=== PATIENT | female | born 1970 | race Caucasian/White ===

== ENCOUNTER 2017-08-02 07:27 | Emergency (ER) | payer MEDICAID ==
[~2017-08-02] VITALS: Ht 167.6 cm; Wt 61.2 kg
[~2017-08-02 07:27] MED LIST: ESOM40CA PO; FURO-149 PO; HYDR-1189 PO; LACT10SO66 PO; ONDA4TAB22 PO; SPIR100T24 PO
[2017-08-02 07:31] VITALS: BP_SYST 130
[2017-08-02] MEDS ORDERED: NACL 0.9% 1,000 ML IV ONE (07:48)
[2017-08-02] MEDS ORDERED: ONDANSETRON HCL 4 MG/2 ML VIAL IVP ONE (08:00)
== END 2017-08-02 07:58 | disposition left against medical advice (07) ==
LOC: SED 07:27
DX: R10.30 Lower abdominal pain, unspecified (principal); Z53.21 Procedure and treatment not carried out due to patient leaving prior to being seen by health care provider

== ENCOUNTER 2021-04-30 01:37 | Emergency (ER) | payer OTHER, MEDICAID ==
[~2021-04-30] VITALS: Ht 167.6 cm; Wt 67.1 kg
[~2021-04-30 01:37] MED LIST changes: -HYDR-1189 PO; +HYDR-3919 PO; -SPIR100T24 PO; +SPIR100T5 PO
[2021-04-30 01:47] VITALS: BP_SYST 145
--- NOTE | 2021-04-30 01:50 | NUR ---
Patient to ER bed 8 to gown for evaluation. Side rails up.
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
--- NOTE | 2021-04-30 01:57 | NUR ---
ER Dr. Scott at bedside examining patient.
[2021-04-30] MEDS ORDERED: HYDROcodone/ACETAMIN 5-325 MG TAB (NORCO/ VICODIN) PO ONE (02:15)
[2021-04-30] MEDS ORDERED: IBUPROFEN 600 MG TABLET PO ONE (02:15)
--- NOTE | 2021-04-30 02:15 | NUR ---
X-ray at bedside.
[2021-04-30] MEDS ORDERED: IBUP-1969 PO (03:02)
[2021-04-30 03:24] VITALS: BP_SYST 145
--- NOTE | 2021-04-30 03:33 | NUR ---
SUGAR TONG SPLINT PLACED TO RIGHT FOREARM. PT TOLERATED WELL.
--- NOTE | 2021-04-30 03:34 | NUR ---
Patient given written and verbal discharge instructions and verbalizes understanding. ER MD discussed with patient the results and treatment provided. Patient in stable condition. ID arm band removed. Rx of IBUPROFEN given. Patient educated on pain management and to follow up with PMD. Pain Scale 7/10. Opportunity for questions provided and answered. Medication side effect fact sheet provided.
== END 2021-04-30 03:34 | disposition home or self-care (01) ==
LOC: SED 01:37
DX: S52.601A Unspecified fracture of lower end of right ulna, initial encounter for closed fracture (principal); I10 Essential (primary) hypertension; F17.210 Nicotine dependence, cigarettes, uncomplicated; Z88.5 Allergy status to narcotic agent; Z79.899 Other long term (current) drug therapy; X58.XXXA Exposure to other specified factors, initial encounter; Y93.89 Activity, other specified; Y92.89 Other specified places as the place of occurrence of the external cause; Y99.8 Other external cause status
CPT/HCPCS: 73090; 99284

== ENCOUNTER 2021-11-30 02:40 | Emergency (ER) | payer OTHER, MEDICAID ==
[~2021-11-30] VITALS: Ht 167.6 cm; Wt 74.8 kg
[~2021-11-30 02:40] MED LIST changes: +IBUP-1969 PO
[2021-11-30 03:43] VITALS: BP_SYST 144
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
--- NOTE | 2021-11-30 04:50 | NUR ---
Patient noted to have eloped from the ER, ambulating out with significant other. No signs of distress noted.
[2021-11-30] MEDS ORDERED: ACETAMINOPHEN/CODEINE 300 MG-30 MG TABLET PO ONE (05:00)
[2021-11-30] MEDS ORDERED: predniSONE 20 MG TABLET PO ONE (05:00)
== END 2021-11-30 04:50 | disposition left against medical advice (07) ==
LOC: SED 02:40
DX: S80.12XA Contusion of left lower leg, initial encounter (principal); S80.11XA Contusion of right lower leg, initial encounter; I10 Essential (primary) hypertension; F17.210 Nicotine dependence, cigarettes, uncomplicated; W23.1XXA Caught, crushed, jammed, or pinched between stationary objects, initial encounter; Y93.89 Activity, other specified; Y92.89 Other specified places as the place of occurrence of the external cause; Y99.8 Other external cause status
CPT/HCPCS: 99281